=== PATIENT | female | born 1950 | race Caucasian/White ===

== ENCOUNTER 2017-01-12 14:12 | Emergency (ER) | payer OTHER ==
[~2017-01-12] VITALS: Ht 172.7 cm; Wt 91.0 kg
[~2017-01-12 14:12] MED LIST: B COTAB3 PO; CYAN1000P IM; PROZ20CA11 PO; PROZ40CA PO; REST15CA PO; VITA400C28 PO; ZOFR4TAB3 SL; [UNRECOGNIZED DRUG - CODE] PO
[2017-01-12 14:22] VITALS: BP 127/64; PULSE 84; RESP 16; TEMP 98.2; O2SAT 98
--- NOTE | 2017-01-12 16:06 | PD ---
HPI Chief Complaint: Skin Problem Time Seen by Provider: 16:05 Travel History International Travel<30 days: No Contact w/Intl Traveler<30days: No Traveled to known affect area: No History of Present Illness HPI 66-year-old female presents to the emergency department with redness and itching to her left hand, left buttocks, right upper thigh, and right ear 4 days. The areas are itchy. Reports swelling to her left hand. Left hand is sometimes painful after itching. She reports new lotions. She also reports going to [place] the other day and touching all the plants. She denies known allergies. Denies new detergents, soaps, medications, foods. She has taken Benadryl to help with itching with good relief. Denies fever, chills, nausea, vomiting. Denies airway edema, stridor, wheezing, shortness of breath. Is not taking any other medications or tried any other treatments to alleviate her symptoms. All the areas appeared on the same day. No known allergies. No other modifying factors or associated signs and symptoms. PFSH Past Medical History Cancer: No Diabetes: No Glaucoma: No Hepatitis: Yes (C) Hiatal Hernia: No Hypertension: No Thyroid Disease: No Past Surgical History Abdominal Surgery: No Cardiac Surgery: No Ear Surgery: No Endocrine Surgery: No Eye Surgery: No Genitourinary Surgery: No Gynecologic Surgery: No Oral Surgery: No Thoracic Surgery: No Social History Alcohol Use: Yes (OCCASSIONALLY) Tobacco Use: No Substance Use: No Allergies-Medications (Allergen,Severity, Reaction): Coded Allergies: No Known Allergies (Verified , 01/12/17) Reported Meds & Prescriptions Reported Meds & Active Scripts Active Bactrim DS (Sulfamethoxazole-Trimethoprim) 800-160 Mg Tab 1 Tab PO BID 10 Days Keflex (Cephalexin) 500 Mg Cap 500 Mg PO Q6H 10 Days Zantac (Ranitidine HCl) 150 Mg Tab 150 Mg PO BID 7 Days Deltasone (Prednisone) 20 Mg Tab 40 Mg PO DAILY 5 Days start 01/13/2017 Review of Systems Except as stated in HPI: all other systems reviewed are Neg Physical Exam Narrative GENERAL: Well-nourished, well-developed female patient, in no acute distress; afebrile, nontoxic-appearing SKIN: Warm and dry. Left hand and wrist are edematous and erythematous and with warmth to touch; left lower buttocks with large area of erythema and warmth to touch; right upper thigh with large area of erythema and with warmth to touch; top of right ear with small area of erythema and edema with warmth to touch. HEAD: Atraumatic. Normocephalic. EYES: Pupils equal and round. No scleral icterus. No injection or drainage. ENT: Mucosa pink and moist. Airway patent. NECK: Trachea midline. CARDIOVASCULAR: Regular rate and rhythm. No murmur appreciated. RESPIRATORY: No accessory muscle use. Clear to auscultation. Breath sounds equal bilaterally. GASTROINTESTINAL: Abdomen soft, non-tender, nondistended. Hepatic and splenic margins not palpable. Bowel sounds are active 4 quadrants. MUSCULOSKELETAL: No obvious deformities. No clubbing. No cyanosis. No edema. NEUROLOGICAL: Awake and alert. Oriented 3. No obvious cranial nerve deficits. Motor grossly within normal limits. Normal speech. PSYCHIATRIC: Appropriate mood and affect; insight and judgment normal. Data Data Last Documented VS Vital Signs Date Time Temp Pulse Resp B/P Pulse Ox O2 Delivery O2 Flow Rate FiO2 01/12/17 14:22 98.2 84 16 127/64 98 Orders Methylprednisolone So Succ Inj (Solumedr (01/12/17 16:15) Ranitidine (Zantac) (01/12/17 16:15) Tetanus/Diphtheria Tox Adult (Tetanus/Di (01/12/17 16:15) MDM Medical Decision Making Medical Screen Exam Complete: Yes Emergency Medical Condition: Yes Medical Record Reviewed: Yes Differential Diagnosis Contact dermatitis, cellulitis, nonspecific skin eruption Narrative Course 66-year-old female with 2 large areas of erythemic areas to her left buttock and right upper thigh. Her left hand is mildly erythemic and edematous at the third, fourth, fifth finger and metacarpal area. Patient is afebrile and nontoxic-appearing. Patient reports areas are itchy. I feel the areas are more consistent with a contact dermatitis or allergic reaction, but due to the largeness of the erythemic areas and warmth to touch I will prescribe antibiotics also for possible cellulitis. Solu-Medrol and Zantac administered in the ER. Patient is driving and unable to administer Benadryl. Deltasone, Zantac, Keflex, Bactrim prescribed for home. Instructed patient to take Benadryl as directed and as needed for itching. Instructed patient to follow up with wash helper. Patient verbalized understanding and agreement with treatment plan. Patient is medically cleared and stable for discharge. Discussed reasons to return to the emergency department. Instructed patient to follow up with primary care provider. Patient agrees with treatment plan. The patients vital signs are stable and the patient is stable for outpatient follow- up and treatment. Patient discharged home, stable and in no acute distress. Diagnosis Primary Impression: Contact dermatitis Qualified Code: L25.9 - Contact dermatitis, unspecified contact dermatitis type, unspecified trigger Referrals: [employer] Primary Care Physician Patient Instructions: Cellulitis (ED), Contact Dermatitis (ED), General Instructions Additional Instructions: Antibiotics as prescribed Take prednisone as prescribed [id number] topicals to reduce itch Benadryl as directed and as needed to reduce itch Follow-up with your primary care provider Follow-up with dermatology Follow-up with wash helper Return to the emergency department immediately with worsening of symptoms Med/Other Pt SpecificInfo: Prescription(s) given Scripts Sulfamethoxazole-Trimethoprim (Bactrim DS)800-160 Mg Tab1 Tab PO BID 10 Days Ref 0 Prov:Aimee Ventura 01/12/17 Cephalexin (Keflex)500 Mg Enl537 Mg PO Q6H 10 Days Ref 0 Prov:Aimee Ventura 01/12/17 Ranitidine (Zantac)150 Mg [id number] Mg PO BID 7 Days Ref 0 Prov:Aimee Ventura 01/12/17 Prednisone (Deltasone)20 Mg Tab40 Mg PO DAILY 5 Days Ref 0 start 01/13/2017 Prov:Aimee Ventura 01/12/17 Disposition: 01 DISCHARGE HOME Condition: Stable Aimee Ventura Jan 12, 2017 16:06
[2017-01-12] MEDS ORDERED: BACT800T5 PO (16:11)
[2017-01-12] MEDS ORDERED: ZANT150T2 PO (16:11)
[2017-01-12] MEDS ORDERED: PRED-503 PO (16:11)
[2017-01-12] MEDS ORDERED: CEPH-460 PO (16:11)
[2017-01-12] MEDS ORDERED: RANITIDINE HCL 150 MG TAB PO ONE (16:15)
[2017-01-12] MEDS ORDERED: methylPREDNISolone SOD SUCC 125 MG/2 ML VIAL IM ONE (16:15)
[2017-01-12] MEDS ORDERED: TETANUS/DIPHTHERIA TOXOID ADULT 0.5 ML VIAL IM ONE (16:15)
== END 2017-01-12 16:44 | disposition home or self-care (01) ==
LOC: NEPB 14:12
DX: R21 Rash and other nonspecific skin eruption (principal)
CPT/HCPCS: 90471; 90714; 96372; 99283; J2930